=== PATIENT | female | born 1995 | race African-American/Black ===

== ENCOUNTER 2017-08-23 12:01 | Emergency (ER) | payer MEDICAID, OTHER ==
[~2017-08-23] VITALS: Ht 160 cm; Wt 52.0 kg
[2017-08-23 12:03] VITALS: BP 125/58; PULSE 64; RESP 16; TEMP 98.5; O2SAT 100
[2017-08-23] MEDS ORDERED: KETOROLAC TROMETHAMINE 60 MG/2 ML (IM) VIAL IM ONE (12:30)
--- NOTE | 2017-08-23 12:35 | PD ---
HPI Chief Complaint: Oral / Dental Pain or Problem Time Seen by Provider: 12:17 Travel History International Travel<30 days: No Contact w/Intl Traveler<30days: No Traveled to known affect area: No History of Present Illness HPI 22yo F with no PMH presents to the ED with c/o pain in her right wisdom tooth. This pain has been there for 1 month and worse for the last week. Pt saw a dentist on 08/14/17 and they want to extract all 4 wisdom teeth and her father is working with insurance, and wants to only extract the 2 bottom wisdom tooth because of cost. Denies any fever, drooling, change in voice, chest pain, sob, n/v, abdominal pain, focal weakness or numbness. Pt has not taken any pain medication for a few days. She said advil and tylenol didnt work. PFSH Past Medical History Hx Anticoagulant Therapy: No Cardiovascular Problems: No Chemotherapy: No Cerebrovascular Accident: No Diabetes: No Respiratory: No ?: Not LMP: 08/12/17 Past Surgical History Hysterectomy: No Other Surgery: Yes (L BREAST CYST REMOVAL) Social History Alcohol Use: No Tobacco Use: No Substance Use: No Allergies-Medications (Allergen,Severity, Reaction): Coded Allergies: No Known Allergies (Unverified Adverse Reaction, Unknown, 08/23/17) Reported Meds & Prescriptions Reported Meds & Active Scripts Active No Active Prescriptions or Reported Medications Review of Systems Except as stated in HPI: all other systems reviewed are Neg Physical Exam Narrative GENERAL: 22yo F in mild distress. SKIN: Focused skin assessment warm/dry. HEAD: Atraumatic. Normocephalic. EYES: Pupils equal and round. No scleral icterus. No injection or drainage. ENT: TM wnl bilaterally. Throat: Uvula midline, nonerythematous. No trismus. No facial swelling. MOUTH: +TTP tooth #32. No periapical fluctuance. NECK: Trachea midline. No JVD. CARDIOVASCULAR: Regular rate and rhythm. No murmur appreciated. RESPIRATORY: No accessory muscle use. Clear to auscultation. Breath sounds equal bilaterally. GASTROINTESTINAL: Abdomen soft, non-tender, nondistended. MUSCULOSKELETAL: No obvious deformities. No clubbing. No cyanosis. No edema. NEUROLOGICAL: Awake and alert. No obvious cranial nerve deficits. Motor grossly within normal limits. Normal speech. PSYCHIATRIC: Appropriate mood and affect; insight and judgment normal. Data Data Last Documented VS Vital Signs Date Time Temp Pulse Resp B/P (MAP) Pulse Ox O2 Delivery O2 Flow Rate FiO2 08/23/17 12:03 98.5 64 16 125/58 (80) 100 Room Air Orders Orders Ketorolac Inj (Toradol Inj) (08/23/17 12:30) MDM Medical Decision Making Medical Screen Exam Complete: Yes Emergency Medical Condition: Yes Differential Diagnosis Tooth decay vs. impaction of wisdom tooth Narrative Course 22yo F with pain in right wisdom tooth for 1 month. Pt has already seen a dentist and have someone to follow up with. Denies any fever and has no other symptoms. She is nontoxic appearing and is here for pain control. I offered an inferior alveolar block but pt does not want it right now. Toradol IM given. Pt reevaluated at bedside and said her pain has resolved. Tolerating PO. Instructed to follow up with dentist. Diagnosis Primary Impression: Tooth pain Patient Instructions: General Instructions Departure Forms: Tests/Procedures Additional Instructions: Please follow up with your dentist in 1-2 days. Return to the ED if symptoms worsen. Med/Other Pt SpecificInfo: Prescription(s) given Scripts Ibuprofen (Ibuprofen) 400 Mg Tab 400 MG PO Q8H Y for PAIN SCALE 1 TO 4, #20 TAB 0 Refills Prov: Shazia Jewell 08/23/17 Disposition: 01 DISCHARGE HOME Condition: Stable JewellShazia lyles Aug 23, 2017 12:35
[2017-08-23] MEDS ORDERED: IBUP1TAB5 PO (14:09)
== END 2017-08-23 14:15 | disposition home or self-care (01) ==
LOC: NEPD 12:01
DX: K08.89 Other specified disorders of teeth and supporting structures (principal)
CPT/HCPCS: 96372; 99284; J1885